=== PATIENT | female | born 1965 | race African-American/Black ===

== ENCOUNTER → 2017-03-02 | Outpatient (CLI) | payer OTHER ==
[~2017-03-02] MED LIST: PROVERA10 MG PO
== END ==
LOC: RAD 00:55
DX: Z12.31 Encounter for screening mammogram for malignant neoplasm of breast (principal)

== ENCOUNTER → 2018-05-23 | Outpatient (CLI) | payer OTHER | LOC: RAD 10:47 | DX: Z12.31 Encounter for screening mammogram for malignant neoplasm of breast (principal) ==

== ENCOUNTER → 2020-02-28 | Outpatient (CLI) | payer OTHER | LOC: RAD 02-26 07:34 | PROVIDERS: ATTEND Internal Medicine | DX: Z12.31 Encounter for screening mammogram for malignant neoplasm of breast (principal); N63.20 Unspecified lump in the left breast, unspecified quadrant ==

== ENCOUNTER → 2020-04-02 | Outpatient (CLI) | payer OTHER | LOC: BC 03-13 08:35 | PROVIDERS: ATTEND Radiology Diagnostic Radiology | DX: N63.20 Unspecified lump in the left breast, unspecified quadrant (principal); N64.89 Other specified disorders of breast ==

== ENCOUNTER → 2021-06-17 | Outpatient (CLI) | payer OTHER | LOC: BC 09:24 | PROVIDERS: ATTEND Internal Medicine | DX: Z12.31 Encounter for screening mammogram for malignant neoplasm of breast (principal); N64.89 Other specified disorders of breast ==